=== PATIENT | female | born 1985 | race Caucasian/White ===

== ENCOUNTER 2017-02-23 02:11 | Emergency (ER) | payer OTHER ==
[~2017-02-23] VITALS: Ht 172.7 cm; Wt 58.1 kg
[2017-02-23 02:48] LABS: ABSOLUTE NEUTROPHILS 6.1 thou/uL (1.4-8.2); BASOPHILS 0.3 % (0.0-2.0); EOSINOPHILS 0.8 % (0.0-3.0); HEMATOCRIT 35.8 % (37.0-47.0); HEMOGLOBIN 12.4 gm/dL (12.0-15.0); LYMPHOCYTES 37.8 % (24.0-44.0); MCH 31.5 pg (26.0-34.0); MCHC 34.6 g/dL (28.0-37.0); MCV 91.2 fL (80.0-100.0); MONOCYTES 6.2 % (1.0-8.0); PLATELET COUNT 396 thou/uL (150-400); POLYS 54.9 % (36.0-66.0); RBC 3.93 mil/uL (4.20-5.00); RDW 12.3 % (10.5-14.5); WBC 11.1 thou/uL (4.0-11.0)
[2017-02-23 02:54] LABS: CALCIUM 8.8 mg/dL (8.5-10.1); CREATININE 1.1 mg/dL (0.6-1.3); POTASSIUM 3.2 mmol/L (3.5-5.1)
[2017-02-23 02:56] LABS: MANUAL DIFF NO
[2017-02-23 03:01] LABS: APTT 20.3 Seconds (24.5-32.8); PROTIME 10.7 Seconds (9.3-11.4)
== END 2017-02-23 03:16 | disposition short-term general hospital (02) ==
LOC: ER 02:11
PROVIDERS: Emergency Medicine
DX: S55.011A Laceration of ulnar artery at forearm level, right arm, initial encounter (principal); S66.021A Laceration of long flexor muscle, fascia and tendon of right thumb at wrist and hand level, initial encounter; R57.1 Hypovolemic shock; D62 Acute posthemorrhagic anemia; R45.851 Suicidal ideations; F31.9 Bipolar disorder, unspecified; F41.9 Anxiety disorder, unspecified; F41.0 Panic disorder [episodic paroxysmal anxiety]; F43.10 Post-traumatic stress disorder, unspecified; F17.210 Nicotine dependence, cigarettes, uncomplicated; Z88.0 Allergy status to penicillin; X78.9XXA Intentional self-harm by unspecified sharp object, initial encounter; Y93.89 Activity, other specified; Y92.89 Other specified places as the place of occurrence of the external cause; Y99.8 Other external cause status